=== PATIENT | male | born 1970 | race Caucasian/White ===

== ENCOUNTER 2022-12-23 08:01 | Observation (INO) ==
[2022-12-23] MEDS ORDERED: NITROGLYCERIN 2% OINTMENT 30GM TUBE EXT STA (08:23)
[2022-12-23] MEDS ORDERED: METOPROLOL TARTRATE 1 MG/ML VIAL IV STA ×2 (08:23→09:32)
--- NOTE | 2022-12-23 08:36 | Emergency Department Note ---
Impression & Plan Precordial chest pain, Hypertension, Exertional chest pain, Diabetes mellitus ED Provider Note NAME: SUKHDEV MULLINS AGE: 51 SEX: M : 1970 ARRIVES VIA: Walk-In INFORMANT: [Patient] ED PROVIDER(S): [Saul Smith MD] CHIEF COMPLAINT: Chest pain HISTORY OF PRESENT ILLNESS: The patient is a 51-year-old male with diabetes and high blood pressure. The patient states that yesterday evening, he was very active and doing the stairs. He began to feel pain across the left chest and some pain in his left arm and left jaw. The patient rested and felt a bit better. This morning, he still feels the pressure although not as severe. He presents for evaluation. Patient does have reflux disease. He saw his family doctor's office 3 days ago and was given Pepcid in addition to his typical proton pump inhibitor. Patient did take aspirin last evening as well as this morning. He did take his blood pressure medication this morning. He noted his blood pressure was high last night and this morning despite his meds. PMHx/PSHx: See Below SOCIAL HISTORY: See Below. PHYSICAL EXAM: GENERAL: Patient is in no acute distress. HEENT: No acute trauma, normocephalic atraumatic, mucous membranes moist, no nasal congestion. NECK: No stridor, no adenopathy, no meningismus, trachea is midline. LUNGS: Clear to auscultation bilaterally, no wheeze, no rhonchi, breath sounds equal. Chest: Nontender chest wall. HEART: Subtle systolic murmur, regular rate and rhythm. ABDOMEN: Soft, nontender, bowel sounds positive, no peritonitis. EXTREMITIES: No cyanosis or edema, full range of motion of all the joints without pain or difficulty, no signs for acute trauma. NEUROLOGIC: Oriented x 3, no acute motor or sensory deficits, no focal weakness. SKIN: No rash, no jaundice, no diaphoresis. DIFFERENTIAL DIAGNOSIS: Angina, [place], musculoskeletal pain, uncontrolled hypertension, aortic dissection, PE, anemia, among others. EMERGENCY DEPARTMENT COURSE/PROCEDURES: Prior/Outside records reviewed: Recent family doctor's office visit. ECG per my interpretation: Indication was chest pain. The ECG shows a normal sinus rhythm with a rate of 87. LVH is present. There is no ST elevation, no PVCs. The QTc is 438. Continuous Cardiac Monitoring per my interpretation: An order was placed for co ntinuous cardiac monitoring. The monitor shows a rate of 89 with normal sinus rhythm. MEDICAL DECISION MAKING: There is no leukocytosis or concerning anemia. There is a normal platelet count. No coagulopathy. No renal failure or significant electrolyte abnormality. No concerning liver enzyme elevation. No pancreatitis. The patient appeared to be in a euthyroid state. ECG showed a normal sinus rhythm, no obvious ischemia. Cardiac enzyme testing x1 is not consistent with acute cardiac injury. COVID test returned negative. Chest film per my review did not show mediastinal widening, pneumonia or pneumothorax. On exam, patient was not tender across the chest wall with palpation. He was hypertensive. Patient was given 1 inch of nitroglycerin paste. He had already taken aspirin prior to arrival. He was given IV metoprolol, 5 mg. He was given IV Pepcid. Patient's blood pressure is now nicely controlled. His chest pain is better but he still feels a slight discomfort to the left chest. The patient has multiple cardiac risk factors. He presents with exertional chest pain that did radiate to his jaw and neck. He was hypertensive upon arrival. I do think further cardiac work-up is warranted. Hospitalization is indicated. I spoke with the patient and case management, the on-call hospitalist was consulted. DISPOSITION: Patient's presentation and findings warrant a hospital stay. 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 follows with pcp. no current problems. Hypertension Mitral valve regurgitation hx - no problems. Type 2 diabetes mellitus NIDDM Surgical History S/P wisdom tooth extraction Status post left foot surgery for osteomyelitis as a teenager Family History Grandmother (Maternal) Crohn's disease Sister Crohn's disease Father Diabetes Myocardial infarction Hypertension Grandfather (Maternal) Diabetes Son Diabetes Other No family history of adverse response to anesthesia Denies family history of Ovarian cancer Prostate cancer Dementia Breast cancer Lung cancer Colorectal cancer Stroke Social History Smoking Status: Never smoker Second Hand Exposure: No; Hx Alcohol Use: No Hx Substance Use: No Preferred Language: Greek Communication Ability: Effective Visual Impairment: Limited Hearing Ability: Normal Health Director Required: No Beliefs That Will Affect Care: None marital status: Current Living Situation: Spouse and Family current occupational status: employed current occupation: [employer] How many Children do You have: 2 How many Children do You have Comment: 2 biologic, 3 step Feels Safe at Home: Yes Childhood Exposure to Second-Hand Smoke: Yes Diet Comment: regular caffeine: Yes Dental Care, Regularly: Yes Physical Activity Frequency: 5-6 Times per Week Seatbelt Use: always Sunscreen Use: Yes Assistive Devices: Contacts and Glasses Allergies Allergies Allergy/AdvReac Type Severity Reaction Status Date / Time lisinopril AdvReac Mild Cough Verified 12/20/22 09:05 metformin AdvReac Indigestion/Chest Verified 12/20/22 09:05 Pain Home Meds Previous Rx's Medication Instructions Recorded omeprazole 40 mg capsule,delayed 40 mg PO DAILY #90 caps 09/05/22 release amlodipine 10 mg tablet 10 mg PO DAILY #90 tabs 09/16/22 losartan 100 mg tablet 100 mg PO QAM #90 tabs 09/16/22 glipizide 5 mg tablet 5 mg PO DAILY #90 tabs 12/02/22 famotidine 40 mg tablet 40 mg PO BID #60 tabs 12/20/22 Results & Data (ED) Vital Signs Vital Signs - 24 hr 12/23/22 08:05 12/23/22 08:16 12/23/22 08:11 Temperature 36.5 C Temperature Source Temporal Artery Scan Pulse Rate 91 H 89 89 Pulse Rate from SpO2 Sensor Pulse Rhythm Regular Respiratory Rate 18 18 Respiratory Effort / Characteristics Non-Labored Spontaneous Respiratory Depth Normal Respiratory Pattern Regular Blood Pressure 171/100 H Blood Pressure Mean 123 Pulse Oximetry 99 99 Oxygen Delivery Method Room Air Room Air Sepsis Recent Fever Within 48 Hours No Sepsis New/Unexplained Change in Mental Status N/A Sepsis Action Taken by Nursing No Action Required 12/23/22 08:27 12/23/22 08:30 12/23/22 09:00 Temperature Temperature Source Pulse Rate 89 83 76 Pulse Rate from SpO2 Sensor 83 77 Pulse Rhythm Respiratory Rate 20 17 Respiratory Effort / Characteristics Respiratory Depth Respiratory Pattern Blood Pressure 163/108 H 149/105 H 131/88 Blood Pressure Mean 119 102 Pulse Oximetry 98 93 Oxygen Delivery Method Sepsis Recent Fever Within 48 Hours Sepsis New/Unexplained Change in Mental Status Sepsis Action Taken by Nursing 12/23/22 09:30 12/23/22 10:01 Temperature Temperature Source Pulse Rate 78 78 Pulse Rate from SpO2 Sensor 77 79 Pulse Rhythm Respiratory Rate 18 20 Respiratory Effort / Characteristics Respiratory Depth Respiratory Pattern Blood Pressure 120/76 127/85 Blood Pressure Mean 90 99 Pulse Oximetry 92 96 Oxygen Delivery Method Sepsis Recent Fever Within 48 Hours Sepsis New/Unexplained Change in Mental Status Sepsis Action Taken by Shelter Medications Current Medication List: was personally reviewed by me Laboratory Data Attestation: I reviewed the patient's lab results. 12/23/22 08:20 12/23/22 08:20 Lab Results 12/23/22 12/23/22 12/23/22 Range/Units 08:20 08:20 08:20 WBC 5.77 (4.8-10.8) K/ul RBC 5.28 (4.70-6.10) M/uL Hgb 16.4 (14.0-18.0) g/dl Hct 46.3 (42.0-52.0) % MCV 87.7 (80.0-100.0) fL MCH 31.1 (25.0-34.0) pg MCHC 35.4 (32.0-36.0) g/dL RDW Std Deviation 38.9 (36.4-46.3) fL RDW Coeff of Ramiro 12.0 (11.5-14.5) % Plt Count 178 (130-400) K/uL MPV 10.3 (9.4-12.4) fL Immature Gran % (Auto) 0.2 % Neut % (Auto) 52.2 % Lymph % (Auto) 36.2 % Ulster % (Auto) 9.9 % Eos % (Auto) 1.0 % Baso % (Auto) 0.5 % Neut # (Auto) 3.01 (1.40-6.50) K/uL Lymph # (Auto) 2.09 (1.2-3.4) K/uL Ulster # (Auto) 0.57 (0.11-0.59) K/uL Eos # (Auto) 0.06 (0-0.50) K/uL Baso # (Auto) 0.03 (0-0.2) K/uL Immature Gran # (Auto) 0.01 (0.01-0.20) K/uL PT (9.0-12.0) Seconds INR (0.9-1.1) APTT (21.0-31.0) Seconds PTT Ratio Sodium 140 (136-145) mmol/L Potassium TNP Chloride 104 (98-107) mmol/L Carbon Dioxide 29 (21-32) mmol/L Anion Gap 7 (3-11) BUN 16 (6-23) mg/dl Creatinine 1.13 (0.6-1.4) mg/dl Est Cr Clr Drug Dosing 93.9 ml/min Est GFR ( Amer) 86.7 ml/min Est GFR (Non-Af Amer) 74.8 ml/min BUN/Creatinine Ratio 14.2 (10-20) Glucose 186 H (70-99(Fasting)) mg/dl Calcium 9.2 (8.6-10.3) mg/dl Magnesium 1.9 (1.7-2.4) mg/dl Total Bilirubin 0.6 (0.2-1.0) mg/dl ALT 56 H (7-52) U/L Alkaline Phosphatase 70 (34-104) U/L Troponin I High Sens 4.8 (0-20) pg/ml Total Protein 7.6 (6.0-8.3) gm/dl Albumin 4.6 (3.4-5.0) gm/dl Globulin 3.0 (2.5-4.0) gm/dl Albumin/Globulin Ratio 1.5 (0.9-2) Lipase 45 (11-82) U/L TSH 3.170 (0.300-4.500) uIu/ml SARS-CoV-2, RNA, NAAT (NEGATIVE) 12/23/22 12/23/22 Range/Units 08:20 08:22 WBC (4.8-10.8) K/ul RBC (4.70-6.10) M/uL Hgb (14.0-18.0) g/dl Hct (42.0-52.0) % MCV (80.0-100.0) fL MCH (25.0-34.0) pg MCHC (32.0-36.0) g/dL RDW Std Deviation (36.4-46.3) fL RDW Coeff of Ramiro (11.5-14.5) % Plt Count (130-400) K/uL MPV (9.4-12.4) fL Immature Gran % (Auto) % Neut % (Auto) % Lymph % (Auto) % Ulster % (Auto) % Eos % (Auto) % Baso % (Auto) % Neut # (Auto) (1.40-6.50) K/uL Lymph # (Auto) (1.2-3.4) K/uL [place]ster # (Auto) (0.11-0.59) K/uL Eos # (Auto) (0-0.50) K/uL Baso # (Auto) (0-0.2) K/uL Immature Gran # (Auto) (0.01-0.20) K/uL PT 10.7 (9.0-12.0) Seconds INR 1.0 (0.9-1.1) APTT 26.2 (21.0-31.0) Seconds PTT Ratio 1.0 Sodium (136-145) mmol/L Potassium Chloride (98-107) mmol/L Carbon Dioxide (21-32) mmol/L Anion Gap (3-11) BUN (6-23) mg/dl Creatinine (0.6-1.4) mg/dl Est Cr Clr Drug Dosing ml/min Est GFR ( Amer) ml/min Est GFR (Non-Af Amer) ml/min BUN/Creatinine Ratio (10-20) Glucose (70-99(Fasting)) mg/dl Calcium (8.6-10.3) mg/dl Magnesium (1.7-2.4) mg/dl Total Bilirubin (0.2-1.0) mg/dl ALT (7-52) U/L Alkaline Phosphatase (34-104) U/L Troponin I High Sens (0-20) pg/ml Total Protein (6.0-8.3) gm/dl Albumin (3.4-5.0) gm/dl Globulin (2.5-4.0) gm/dl Albumin/Globulin Ratio (0.9-2) Lipase (11-82) U/L TSH (0.300-4.500) uIu/ml SARS-CoV-2, RNA, NAAT NEGATIVE (NEGATIVE) Administered Medications Discontinued Medications Metoprolol Tartrate (Metoprolol Tartrate 1 Mg/Ml Vial) 5 mg IV NOW STA Stop: 12/23/22 08:24 Last Admin: 12/23/22 08:27 Dose: 5 mg Documented By: KEE Metoprolol Tartrate (Metoprolol Tartrate 1 Mg/Ml Vial) 5 mg IV NOW STA Stop: 12/23/22 09:33 Last Admin: 12/23/22 09:40 Dose: Not Given Documented By: KEE Nitroglycerin (Nitroglycerin 2% Ointment 30gm Tube) 1 inch EXT NOW STA Stop: 12/23/22 08:24 Last Admin: 12/23/22 08:27 Dose: 1 inch Documented By: KEE Imaging Data Radiologist's Impression: Chest X-Ray 12/23/22 08:10 XR chest 1V portable HISTORY: 51 years-old Male Chest pain, nonspecific acute chest pain COMPARISON: CTA chest 03/06/2022 TECHNIQUE: AP view of the chest FINDINGS: Cardiomediastinal and hilar silhouettes are within normal limits. No pneumothorax, pleural effusion, airspace consolidation or pulmonary edema. Bones appear grossly intact. IMPRESSION: No acute process. ACT 112: Negative or not required by law. The above report was generated using voice recognition software. It may contain grammatical, syntax or spelling errors. Electronically signed by: Gerber Lara M.D. 12/23/2022 8:41 AM Discharge Plan Visit Data Chief Complaint: Cardiac Assessment Stated Complaint: CHEST PAIN, LEFT ARM PAIN, LEFT JAW PAIN ED Provider: Saul Smith Discharge Problem: Precordial chest pain, Hypertension, Exertional chest pain, Diabetes mellitus Patient Disposition: Admitted As Inpatient Condition: Good Forms Stand Alone Forms: My [facility] [employer] Prescriptions Prescriptions: No Action omeprazole 40 mg capsule,delayed release(DR/EC) 40 mg PO DAILY Qty: 90 2RF amlodipine 10 mg tablet 10 mg PO DAILY Qty: 90 3RF losartan 100 mg tablet 100 mg PO QAM Qty: 90 1RF glipizide 5 mg tablet 5 mg PO DAILY Qty: 90 2RF Rx Instructions: take 30 minutes before the first main meal famotidine 40 mg tablet 40 mg PO BID Qty: 60 2RF Referrals Referrals: Gato Curiel DO [Primary Care Provider] -
--- NOTE | 2022-12-23 08:42 | XRay Report ---
XR chest 1V portable HISTORY: 51 years-old Male Chest pain, nonspecific acute chest pain COMPARISON: CTA chest 03/06/2022 TECHNIQUE: AP view of the chest FINDINGS: Cardiomediastinal and hilar silhouettes are within normal limits. No pneumothorax, pleural effusion, airspace consolidation or pulmonary edema. Bones appear grossly intact. IMPRESSION: No acute process. ACT 112: Negative or not required by law. The above report was generated using voice recognition software. It may contain grammatical, syntax o r spelling errors. Electronically signed by: Gerber Lara M.D. 12/23/2022 8:41 AM
[2022-12-23 09:01] LABS: Basophils # (auto) 0.03 K/uL (0-0.2); Basophils % (auto) 0.5 %; Eosinophils # (auto) 0.06 K/uL (0-0.50); Hematocrit (blood only) 46.3 % (42.0-52.0); Hemoglobin 16.4 g/dl (14.0-18.0); Immature Granulocytes # (auto) 0.01 K/uL (0.01-0.20); Immature Granulocytes % (auto) 0.2 %; Lymphocytes # (auto) 2.09 K/uL (1.2-3.4); Lymphocytes % (auto) 36.2 %; Mean Corpuscular Hemoglobin 31.1 pg (25.0-34.0); Mean Corpuscular Hgb Conc 35.4 g/dL (32.0-36.0); Mean Corpuscular Volume 87.7 fL (80.0-100.0); Mean Platelet Volume 10.3 fL (9.4-12.4); Monocytes # (auto) 0.57 K/uL (0.11-0.59); Monocytes % (auto) 9.9 %; Neutrophils # (auto) 3.01 K/uL (1.40-6.50); Neutrophils % (auto) 52.2 %; Platelet Count 178 K/uL (130-400); RDW Standard Deviation 38.9 fL (36.4-46.3); Red Blood Count 5.28 M/uL (4.70-6.10); White Blood Count 5.77 K/ul (4.8-10.8)
[2022-12-23 09:27] LABS: Partial Thromboplastin Time 26.2 Seconds (21.0-31.0); Prothrombin Time 10.7 Seconds (9.0-12.0)
[2022-12-23 10:21] LABS: Albumin Globulin Ratio 1.5 (0.9-2); Albumin Level 4.6 gm/dl (3.4-5.0); BUN Creatinine Ratio 14.2 (10-20); Bilirubin,Total 0.6 mg/dl (0.2-1.0); Calcium 9.2 mg/dl (8.6-10.3); Creatinine Clr Calc Pharmacy 93.9 ml/min; Est GFR (African American) 86.7 ml/min; Est GFR (Non-African American) 74.8 ml/min; Magnesium 1.9 mg/dl (1.7-2.4); Total Protein 7.6 gm/dl (6.0-8.3); Troponin I High Sensitivity 4.8 pg/ml (0-20)
[2022-12-23] MEDS ORDERED: FAMOTIDINE 20MG IV PUSH 20 MG/5 ML SYR IV STA (10:26)
[2022-12-23 10:35] LABS: Potassium 3.6 mmol/L (3.5-5.1)
--- NOTE | 2022-12-23 10:46 | History & Physical Report ---
Date of Service December 23, 2022 Assessment & Plan (1) Chest pain: Plan: Chest pain Chest pain for 1 week similar to prior GERD pain, but which was newly associated with left shoulder, left neck, and upper chest pain and shortness of breath 1 night prior to admission which is new and different from prior GERD symptoms Has a personal history of type II DM well-controlled, and hypertension. Last LDL 89 without antihyperlipidemics. No personal history of NM/CVD. Family history of NM in his father in early 60s, no family history of NM/heart disease in 40s/50s Troponin this morning, several hours after initial chest pain is 4.8 and is not associated with any hemic EKG changes. Given moderate risk by heart score will obtain 2-hour troponin and echo, low suspicion that his current symptoms are cardiac based on negative troponin/EKG GERD follow-up as below (2) GERD with esophagitis: Plan: GERD History of GERD with esophagitis, prior EGD by Dr. Watson Patient has had melena in the last week intermittently, although no lightheadedness/dizziness/tachycardia/syncope/presyncope Hemoglobin on admission is normal at 16.4 Received 40 mg of omeprazole this morning, will increase x1 with Protonix 40 for 80 mg initial load and then continue twice daily PPI GI cocktail pending We will treat as upper GI bleed. If hemodynamically stable may have upper endoscopy repeat as outpatient. If hemoglobin drops willconsult GI for inpatient evaluation - EGD 03/21/2022: Gastritis with mild esophagitis. No ulceration, no duodenal abnormalities, no Trimble's esophagus. Biopsy results consistent with reactive gastropathy, no metaplasia/dysplasia noted and H. pylori not reported (3) Type 2 diabetes mellitus: Plan: Hold home antiglycemic's Basal bolus SSI Last A1c 6.9%, repeat pending (4) Hypertension: Plan: Normotensive following metoprolol Continue losartan/amlodipine Patient reports his blood pressures normally run in the 150s in the morning, but are generally well controlled in the afternoon once his medicine kicks in (5) Hypertension: Plan DVT prophylaxis: Deferred in the setting of GI bleed, SCDs Disposition: Medical telemetry for chest pain eval Diet: NPO CODE STATUS: Full code History of Present Illness Primary Care Provider: Gato Curiel, DO Developed some chest pain similar to GERD last which had belching and chest pressure. No shortness of breath at that time. Took omeprazole and tums which did not help. Has had intermittent chest pain like this before but was treated for GERD/indigestion and which went away with omeprazole [address] see Dr. Curiel 2 days ago and was tx protonix and famotidine which did not help at all. Pain has not gone away completely at any point. Last night eh then developed neck, L arm pain when going up stairs with increased shortness of breath and stabbing pain much different from prior GERD symptoms. Still having pain when he woke up this mrfransico and came in. Post ER tx Still had a 'mile pressure ache' in the L shoulder and a little jaw pressure and a knot in his stomach. Was a 7/10 intensity this morning, currently 3/10 and more of a ache in quality than stabbing pain. Did get niro and BP medications. Has had diarrhea and newly bowel movements have been dark/black with diarrhea for the last 7 days. Has not had any lightheadedness, dizziness, syncope, presyncope. No vomiting. No bright red blood per rectum. Did not have black bowel movements previous, did have a scope for his GERD 1 year ago with PSH which showed gastritis but no ulcerations per patient Pt have DM2, last A1C 6.9% Hx HTN: On amlodipine, losartan. Has been 150s lately, usually well controlled. Tends to improve to 130-140s/90 in the afternoon. NO hx strokes or blood clots No history heart attacks of heart failure FHx of NM with stent placement in his early 60s. Last LDL 89 Fhx of DM in father and pgf. No hx of aspirin use normally, took aspirin yesterday 1x 81m this morning and last night due to pain No hx blood thinner use Rides an exercise bike 4x days a week and generally has not has a problem up until this episode. 2 year tobacco use in teens, no use in 40 years Rare social alcohol use No recreation drug or vape use Medical History: Reviewed Medications: Reviewed Surgical History: Reviewed Family history: Reviewed Allergies: Reviewed Social History: Remote minimal tobacco use, none in 40 years. Social alcohol use. No recreational drug use Code Status: Full code Allergies Allergy/AdvReac Type Severity Reaction Status Date / Time lisinopril AdvReac Mild Cough Verified 12/20/22 09:05 metformin AdvReac Indigestion/Chest Verified 12/20/22 09:05 Pain Home Medications Medication Instructions Recorded Confirmed Type omeprazole 40 mg capsule,delayed 40 mg PO DAILY #90 caps 09/05/22 12/20/22 Rx release amlodipine 10 mg tablet 10 mg PO DAILY #90 tabs 09/16/22 12/20/22 Rx losartan 100 mg tablet 100 mg PO QAM #90 tabs 09/16/22 12/20/22 Rx glipizide 5 mg tablet 5 mg PO DAILY #90 tabs 12/02/22 12/20/22 Rx famotidine 40 mg tablet 40 mg PO BID #60 tabs 12/20/22 12/20/22 Rx Past Med/Surg History Medical History Aortic valve 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 follows with pcp. no current problems. Hypertension Mitral valve regurgitation hx - no problems. Type 2 diabetes mellitus NIDDM Surgical History S/P wisdom tooth extraction Status post left foot surgery for osteomyelitis as a teenager Family History Grandmother (Maternal) Crohn's disease Sister Crohn's disease Father Diabetes Myocardial infarction Hypertension Grandfather (Maternal) Diabetes Son Diabetes Other No family history of adverse response to anesthesia Denies family history of Ovarian cancer Prostate cancer Dementia Breast cancer Lung cancer Colorectal cancer Stroke Social History Smoking Status: Never smoker Second Hand Exposure: No; Hx Alcohol Use: No Hx Substance Use: No Preferred Language: Albanian Communication Ability: Effective Visual Impairment: Limited Hearing Ability: Normal Inclusion Manager Required: No Beliefs That Will Affect Care: None marital status: Current Living Situation: Spouse and Family current occupational status: employed current occupation: [employer] How many Children do You have: 2 How many Children do You have Comment: 2 biologic, 3 step Feels Safe at Home: Yes Childhood Exposure to Second-Hand Smoke: Yes Diet Comment: regular caffeine: Yes Dental Care, Regularly: Yes Physical Activity Frequency: 5-6 Times per Week Seatbelt Use: always Sunscreen Use: Yes Assistive Devices: Contacts and Glasses Review of Systems Review of Systems: All systems reviewed & are unremarkable except as noted in HPI & below Physical Exam Physical Exam: General: A&Ox3. NAD. Cooperative. HEENT: Atraumatic, normocephalic. Vision and hearing grossly intact. Pupils equal and reactive to light. Pulm: CTAB A&P. -wheezes, -rales, -rhonchi. Symmetrical chest rise. No increased work of breathing. No respiratory distress. Cardiac: RRR, soft systolic murmur. Radial pulses intact and symmetrical. No JVD Abdominal: No epigastric tenderness on palpation, no rebound tenderness, nondistended, soft. BS present. Extremities: Warm, dry. 5/5 strength optical instrument inspector strength, hip flexion, ankle dorsiflexion/plantarflexion. PT pulses and radial pulses intact. Brisk capillary refill. No edema. Results & Data Results & Data Vital Signs (Past 12 Hours) Vital Signs Temp Pulse Resp BP Pulse Ox O2 Del Method 12/23/22 10:01 78 20 127/85 96 12/23/22 09:30 78 18 120/76 92 12/23/22 09:00 76 17 131/88 93 12/23/22 08:30 83 20 149/105 H 98 12/23/22 08:27 89 163/108 H 12/23/22 08:11 89 18 99 Room Air 12/23/22 08:16 89 12/23/22 08:05 36.5 C 91 H 18 171/100 H 99 Room Air PG Care Time/CCT Total # of Minutes Spent Total Time Spent with Patient: Total time spent is greater than 50% in coordination of care (as documented) at patient's floor/unit and/or counseling patient: Coding Level of Care Code 77911 INT INP/OBS CARE 2/55MIN Diagnoses Chest pain R07.9 GERD with esophagitis K21.00 Type 2 diabetes mellitus E11.9 Hypertension I10
[2022-12-23] MEDS ORDERED: ALUMINUM/MAGNESIUM SUSP 18 ML, LIDOCAINE VISCOUS 2% SOLN 6 ML, BARCODE IDENTIFIER 1 EACH PO ONE (11:20)
[2022-12-23] MEDS ORDERED: GI COCKTAIL ED USE PO ONE (11:30)
[2022-12-23] MEDS ORDERED: PANTOprazole 40 MG in SYRINGE 0 ML IV ONE (11:30)
[2022-12-23] MEDS ORDERED: ACETAMINOPHEN 325 MG TAB PO PRN (11:46)
[2022-12-23] MEDS ORDERED: LACTATED RINGER'S 1,000 ML IV SCH (12:00)
[2022-12-23 12:36] LABS: Hematocrit (blood only) 43.1 % (42.0-52.0); Hemoglobin 15.2 g/dl (14.0-18.0)
--- NOTE | 2022-12-23 14:51 | Electrocardiogram Report ---
Test Reason : Blood Pressure : / mmHG Vent. Rate : 087 BPM Atrial Rate : 087 BPM P-R Int : 178 ms QRS Dur : 096 ms QT Int : 364 ms P-R-T Axes : 033 -09 043 degrees QTc Int : 438 ms Normal sinus rhythm Minimal voltage criteria for LVH, may be normal variant Borderline ECG When compared with ECG of 06-MAR-2022 18:46, No significant change was found Confirmed by Albert Cardenas ([id number]) on 12/23/2022 2:51:35 PM Referred By: REFERRED SELF Confirmed By:Albert Cardenas
[2022-12-23 16:40] LABS: Hematocrit (blood only) 42.6 % (42.0-52.0)
--- NOTE | 2022-12-23 19:27 | Discharge Summary ---
Date of Service December 23, 2022 Admission HPI Per Admitting Provider Developed some chest pain similar to GERD last which had belching and chest pressure. No shortness of breath at that time. Took omeprazole and tums which did not help. Has had intermittent chest pain like this before but was treated for GERD/indigestion and which went away with omeprazole [address] Did see Dr. Curiel 2 days ago and was tx protonix and famotidine which did not help at all. Pain has not gone away completely at any point. Last night eh then developed neck, L arm pain when going up stairs with increased shortness of breath and stabbing pain much different from prior GERD symptoms. Still having pain when he woke up this mroning and came in. Post ER tx Still had a 'mile pressure ache' in the L shoulder and a little jaw pressure and a knot in his stomach. Was a 7/10 intensity this morning, currently 3/10 and more of a ache in quality than stabbing pain. Did get niro and BP medications. Has had diarrhea and newly bowel movements have been dark/black with diarrhea for the last 7 days . Has not had any lightheadedness, dizziness, syncope, presyncope. No vomiting. No bright red blood per rectum. Did not have black bowel movements previous, did have a scope for his GERD 1 year ago with PSH which showed gastritis but no ulcerations per patient Pt have DM2, last A1C 6.9% Hx HTN: On amlodipine, losartan. Has been 150s lately, usually well controlled. Tends to improve to 130-140s/90 in the afternoon. NO hx strokes or blood clots No history heart attacks of heart failure FHx of VA with stent placement in his early 60s. Last LDL 89 Fhx of DM in father and pgf. No hx of aspirin use normally, took aspirin yesterday 1x 81m this morning and last night due to pain No hx blood thinner use Rides an exercise bike 4x days a week and generally has not has a problem up until this episode. 2 year tobacco use in teens, no use in 40 years Rare social alcohol use No recreation drug or vape use Medical History: Reviewed Medications: Reviewed Surgical History: Reviewed Family history: Reviewed Allergies: Reviewed Social History: Remote minimal tobacco use, none in 40 years. Social alcohol use. No recreational drug use Code Status: Full code Principal Diagnosis GERD, ?GI bleed Discharge Exam General: A&Ox3. NAD. Cooperative. HEENT: Atraumatic, normocephalic. Pulm: CTAB A&P. -wheezes, -rales, -rhonchi. Symmetrical chest rise. No increased work of breathing. No respiratory distress. Cardiac: RRR, -mrg. Radial pulses intact and symmetrical. Abdominal: Mild epigastric tenderness improved from prior. Abd nondistended, soft. BS present. Ext: warm, dry. NO edema Discharge Data Allergies Allergy/AdvReac Type Severity Reaction Status Date / Time lisinopril AdvReac Mild Cough Verified 12/20/22 09:05 metformin AdvReac Indigestion/Chest Verified 12/20/22 09:05 Pain Consultations 12/23/22 10:27 ED Decision to Admit Stat Hospital Course (1) Chest pain: Tarun is a 51-year-old male with a past medical history of type 2 diabetes, hypertension, and a family history of heart disease who presented with 1 week of epigastric pain which then spread to his chest 2 days when he was playing with his children concerning for cardiac disease. 2 high-sensitivity troponin tests were completely normal more than 12 hours after onset of pain. Echocardiogram showed normal EF and no wall motion abnormalities. He had no EKG changes, and was in normal sinus rhythm on admission. Very low risk of cardiac event, suspect his symptoms are from GERD. Patient did report intermittent melena in the week previous. Hemoglobin was normal and stable during admission. No further melena during admission. He did not have an elevated BUN. He was placed on twice daily Protonix. Given his clinical stability outpatient follow- up was discussed with the patient, he was comfortable with discharge to GI for outpatient EGD to evaluate for GERD/peptic ulcer/hiatal hernia. As he is fairly symptomatic Case was discussed with GI in an effort to expedite EGD, patient can likely get a scope within the next 2 weeks at [facility]. Patient comfortable with this plan, anticipate scheduling call on Monday. Return precautions were discussed. To do as outpatient: Continue pantoprazole 40 mg twice daily Outpatient EGD Routine PCP follow-up Chest pain Chest pain for 1 week similar to prior GERD pain, but which was newly associated with left shoulder, left neck, and upper chest pain and shortness of breath 1 night prior to admission which is new and different from prior GERD symptoms Has a personal history of type II DM well-controlled, and hypertension. Last LDL 89 without antihyperlipidemics. No personal history of VA/CVD. Family history of VA in his father in early 60s, no family history of VA/heart disease in 40s/50s Initial and 2-hour troponin several hours after onset of pain were both normal. TTE with normal EF and no wall motion abnormalities Low suspicion for cardiac etiology. May follow-up with cardiology outpatient for stress testing, suspect his current symptoms were due to GERD assessed and treated as below (2) GERD with esophagitis: GERD Patient has had melena in the last week intermittently, although no lightheadedness/dizziness/tachycardia/syncope/presyncope Hemoglobin on admission is normal at 16.4, following fluids decreased to 15.2 and then was stable again at 15.0 no tachycardia or hypotension was observed. No further melena occurred while in the hospital Received 40 mg of omeprazole this morning, she used 1 initial dose of Protonix for 80 mg total morning dose then continued on Protonix 40 mg twice daily Symptomatically improved following GI cocktail. EGD 02/2022 showed gastritis with mild esophagitis, no Trimble's BUN was normal (3) Type 2 diabetes mellitus: Last A1c 6.9%, placed on basal bolus while inpatient (4) Hypertension: Normotensive following metoprolol Continue losartan/amlodipine Patient reports his blood pressures normally run in the 150s in the morning, but are generally well controlled in the afternoon once his medicine kicks in Total Time Total Time Spent Total Time Spent (In Minutes): Time spend day of discharge 95 minutes including direct patient care, documentation, review of labs and images, and coordination of care. Discharge Plan Discharge Items Patient Disposition: Home - Self-Care Reason For Visit: CP EVAL, SUSPECT GERD/UGIB Discharge Diagnosis: GERD, UGIB Condition on Discharge: Good Activity: Resume your previous activity Non-emergency contact: Primary Care Provider and Lead Presser Call non-emergency contact if: you have any medication questions, your symptoms worsen, your pain is not controlled, your pain is worsening, your pain is unusual for you and your pain is concerning for you Follow-up/Referrals: Gato Curiel DO [Primary Care Provider] - Tien Rivera Jr, MD [Physician] - Diet: Regular Addtl Attending Provider Instructions: You are seen in the hospital for epigastric and chest pain. You have had a history of acid reflux, but due to your history of diabetes and hypertension and family history of heart disease you were recommended for observation for cardiac disease. And ultrasound of your heart called an echocardiogram showed normal pumping function with no wall motion abnormalities. A blood test that is sensitive for heart stress or damage called troponin was normal x2. You have had some episodes of melenic stool concerning for a potential bleeding stomach ulcer. Your blood levels were normal during admission and 2 checks prior to discharge were both normal at 15.0 and 15.2. Your case was reviewed with cardiology, it was felt to be very unlikely that your symptoms were coming from the heart. Based on your history of symptoms it is likely that you have acid reflux, a possible ulcer, and it is possible that you could have a hiatal hernia. You were treated with an antiacid medicine called Protonix which has been prescribed as noted below. Your case was discussed with gastroenterology who are attempting to expedite an upper endoscopy as an outpatient for you. You should receive a call on Monday to schedule this procedure, if you do not receive a call please contact their office at [phone] Have been prescribed an antiacid medicine called Protonix. Please take Protonix 40 mg twice daily for 6 weeks. You may additionally take [id number] Pepcid/famotidine twice daily as needed. If you develop any new or worsening symptoms including fever, chills, sweats, chest pain, chest pressure, difficulty breathing, uncontrolled nausea/vomiting, rash, wheezing, passing out or nearly passing out, bleeding, black/bloody bowel movements, or other new or concerning symptoms please call your primary care physician, or call [phone] for re-evaluation in the emergency department if you are very concerned. Pending Studies at Discharge: No Stand-Alone Forms: My [employer], Smoking Cessation Medications and DC Order Prescriptions: New pantoprazole 40 mg tablet,delayed release (DR/EC) 40 mg PO BID 42 Days Qty: 84 0RF Continued amlodipine 10 mg tablet 10 mg PO DAILY Qty: 90 3RF losartan 100 mg tablet 100 mg PO QAM Qty: 90 1RF glipizide 5 mg tablet 5 mg PO DAILY Qty: 90 2RF Rx Instructions: take 30 minutes before the first main meal famotidine 40 mg tablet 40 mg PO BID Qty: 60 2RF Discontinued omeprazole 40 mg capsule,delayed release(DR/EC) 40 mg PO DAILY Qty: 90 2RF Discharge Orders: Discharge Order (Routine); Ordered 12/23/22 Ordered By: Avinash Singh Admission Data Admit Date/Time: 12/23/22 11:46 Attending Provider: Avinash Singh Admit Provider: Avinash Singh Primary Care Provider: Gato Curiel Other Providers: Avinash Singh Coding Level of Care Code INP/OBS EV SAME DAY LV 3,85MIN Diagnoses Chest pain R07.9 GERD with esophagitis K21.00 Type 2 diabetes mellitus E11.9 Hypertension I10
[2022-12-23 19:43] LABS: Hemoglobin 14.8 g/dl (14.0-18.0)
[2022-12-23] MEDS ORDERED: amLODIPine BESYLATE 5 MG TAB PO ONE (19:58)
== END 2022-12-23 20:37 | disposition home or self-care (01) ==
LOC: 2E 08:01 → ED 08:01 → 2E 14:49